=== PATIENT | female | born 1950 | race Caucasian/White ===

== ENCOUNTER 2021-03-30 16:53 | Emergency (ER) | payer MEDICARE, OTHER ==
[~2021-03-30 16:53] MED LIST: AEROCHAMBER1 EA XX; CALCIUM600 MG PO; LIPITOR TAB 2020 MG PO; ZYRTEC10 MG PO
[2021-03-30 17:56] LABS: RED BLOOD COUNT 4.37 M/UL (4.00-5.10)
[2021-03-30 18:13] LABS: BUN/CREATININE RATIO 15 (0-10)
[2021-03-30] MEDS ORDERED: ZITHROMAX250 MG PO (19:37)
== END 2021-03-30 19:55 | disposition home or self-care (01) ==
LOC: ER1 16:53
PROVIDERS: Physician Assistant Medical
DX: R06.02 Shortness of breath (principal); R05 Cough; Z20.822 Contact with and (suspected) exposure to COVID-19; Z90.49 Acquired absence of other specified parts of digestive tract; Z90.710 Acquired absence of both cervix and uterus
CPT/HCPCS: 71045; 80053; 85025; 93005; 99285; U0002